=== PATIENT | female | born 1980 | race Caucasian/White ===

== ENCOUNTER 2017-01-02 18:23 | Emergency (ER) | payer OTHER ==
[~2017-01-02] VITALS: Ht 175.3 cm; Wt 64.5 kg
[2017-01-02 18:28] VITALS: BP 123/67; PULSE 80; RESP 16; TEMP 98.9; O2SAT 98
[2017-01-02] MEDS ORDERED: BUPR75TA PO (19:43)
[2017-01-02] MEDS ORDERED: SPRI28TA PO (19:44)
[2017-01-02] MEDS ORDERED: CLAR10CA3 PO (19:44)
--- NOTE | 2017-01-02 19:58 | PD ---
HPI Chief Complaint: headache Time Seen by Provider: 19:34 Travel History International Travel<30 days: No Contact w/Intl Traveler<30days: No Traveled to known affect area: No History of Present Illness HPI This 36-year-old female says she been having a headache for 7 days. She has a history of migraine headaches but her headache she is only lasts a few days. This one has been much more persistent and more severe. She's been taking some ibuprofen without much relief. She was diagnosed with a urine infection not too long ago. She has had some abdominal cramping and occasional nausea. The headache she has is located in the right occipital area. It is aggravated by bending over. At times she feels like she is hot. She says her urine appeared orange the other day. She was on preventative medicine for migraines in the past but says that she did not tolerate the medication well. She has never had a CAT scan or any imaging of her head. The headache started about 2 years ago PFSH Past Medical History Cardiovascular Problems: Yes (Mitral Valve Prolapse) Tetanus Vaccination: < 5 Years Influenza Vaccination: No ?: Unknown LMP: Week and half ago Past Surgical History Surgical History: No Previous Surgery Social History Alcohol Use: No Tobacco Use: No Substance Use: No Allergies-Medications (Allergen,Severity, Reaction): Coded Allergies: Erythromycin (Verified Allergy, Severe, Rash, 01/02/17) Penicillin (Verified Allergy, Severe, Rash, 01/02/17) Reported Meds & Prescriptions Reported Meds & Active Scripts Active Reported Sprintec 28 (Norgestimate-Ethinyl Estradiol) 0.25-35 mg-Mcg Tab 1 Tab PO DAILY Claritin (Loratadine) 10 Mg Cap 10 Mg PO DAILY Bupropion HCl 75 Mg Tab 150 Mg PO BID Review of Systems General / Constitutional: Positive: Chills, No: Fever Eyes: No: Diploplia HENT: Positive: Headaches Cardiovascular: No: Chest Pain or Discomfort, Palpitations Respiratory: No: Cough Gastrointestinal: Positive: Nausea Genitourinary: No: Urgency, Frequency Neurologic: Positive: Weakness Psychiatric: No: Anxiety Endocrine: No: Heat Intolerance, Cold Intolerance Hematologic/Lymphatic: No: Easy Bruising Physical Exam Narrative GENERAL: Well-developed female SKIN: Focused skin assessment warm/dry. HEAD: Atraumatic. Normocephalic. EYES: Pupils equal and round. No scleral icterus. No injection or drainage. ENT: No nasal bleeding or discharge. Mucous membranes pink and moist. NECK: Trachea midline. No JVD. CARDIOVASCULAR: Regular rate and rhythm. No murmur appreciated. RESPIRATORY: No accessory muscle use. Clear to auscultation. Breath sounds equal bilaterally. GASTROINTESTINAL: Abdomen soft, non-tender, nondistended. Hepatic and splenic margins not palpable. MUSCULOSKELETAL: No obvious deformities. No clubbing. No cyanosis. No edema. NEUROLOGICAL: Awake and alert. No obvious cranial nerve deficits. Motor grossly within normal limits. Normal speech. PSYCHIATRIC: Appropriate mood and affect; insight and judgment normal. Data Data Last Documented VS Vital Signs Date Time Temp Pulse Resp B/P Pulse Ox O2 Delivery O2 Flow Rate FiO2 01/02/17 20:56 98.1 83 18 113/61 97 Room Air Orders Complete Blood Count With Diff (01/02/17 19:53) Basic Metabolic Panel (Bmp) (01/02/17 19:53) Urinalysis - C+S If Indicated (01/02/17 19:53) Sodium Chlor 0.9% 1000 Ml Inj (Ns 1000 M (01/02/17 20:00) Prochlorperazine Inj (Compazine Inj) (01/02/17 20:00) Ketorolac Inj (Toradol Inj) (01/02/17 20:00) Ct Brain W/O Iv Contrast(Rout) (01/02/17 19:53) Influenzae A/B Antigen (01/02/17 19:58) Urine Culture (01/02/17 20:15) Labs Laboratory Tests Test 01/02/17 01/02/17 20:15 20:24 Urine Collection Type VOIDED Urine Color YELLOW Urine Turbidity HAZY Urine pH 6.0 Urine Specific [place] 1.004 Urine Protein NEG mg/dL Urine Glucose (UA) NEG mg/dL Urine Ketones TRACE mg/dL Urine Occult Blood NEG Urine Nitrite NEG Urine Bilirubin NEG Urine Leukocyte Esterase NEG Urine RBC 0-3 /hpf Urine WBC 3-5 /hpf Urine WBC Clumps RARE Urine Squamous Epithelial 0-5 /hpf Cells Urine Bacteria FEW /hpf Microscopic Urinalysis Comment CULTURE INDICATED Urine Collection Time 2014 White Blood Count 10.1 TH/MM3 Red Blood Count 4.47 MIL/MM3 Hemoglobin 13.2 GM/DL Hematocrit 38.1 % Mean Corpuscular Volume 85.3 FL Mean Corpuscular Hemoglobin 29.6 PG Mean Corpuscular Hemoglobin 34.7 % Concent Red Cell Distribution Width 10.9 % Platelet Count 353 TH/MM3 Mean Platelet Volume 6.8 FL Neutrophils (%) (Auto) 70.3 % Lymphocytes (%) (Auto) 24.7 % Monocytes (%) (Auto) 4.0 % Eosinophils (%) (Auto) 0.6 % Basophils (%) (Auto) 0.4 % Neutrophils # (Auto) 7.1 TH/MM3 Lymphocytes # (Auto) 2.5 TH/MM3 Monocytes # (Auto) 0.4 TH/MM3 Eosinophils # (Auto) 0.1 TH/MM3 Basophils # (Auto) 0.0 TH/MM3 CBC Comment DIFF FINAL Differential Comment Sodium Level 137 MEQ/L Potassium Level 3.5 MEQ/L Chloride Level 104 MEQ/L Carbon Dioxide Level 23.6 MEQ/L Anion Gap 9 MEQ/L Blood Urea Nitrogen 9 MG/DL Creatinine 0.85 MG/DL Estimat Glomerular Filtration 75 ML/MIN Rate Random Glucose 89 MG/DL Calcium Level 8.9 MG/DL [facility] Medical Decision Making Medical Screen Exam Complete: Yes Emergency Medical Condition: Yes Medical Record Reviewed: Yes Differential Diagnosis Differential includes tension headache, migraine headache, intracerebral tumor Narrative Course CT is negative. Patient given IV fluids and reports feeling better after Compazine and Toradol. She'll be released with prescription for Maxalt and Zofran Diagnosis Primary Impression: Migraine headache Qualified Code: G43.009 - Migraine without aura and without status migrainosus , not intractable Scripts Ondansetron Odt (Zofran Odt)4 Mg Tab4 Mg SL Q6HR PRN (Nausea/Vomiting) #10 TAB Ref 0 Prov:Bernden Zhou MD 01/02/17 Rizatriptan (Maxalt)10 Mg Tab1 Tab PO ONCE #6 Prov:Brenden Zhou MD 01/02/17 Disposition: 01 DISCHARGE HOME Condition: Stable Brenden Zhou MD Jan 02, 2017 19:58
[2017-01-02] MEDS ORDERED: PROCHLORPERAZINE INJ 10 MG/2 ML VIAL IV PUSH ONE (20:00)
[2017-01-02] MEDS ORDERED: SODIUM CHLOR 0.9% 1000 ML INJ 1,000 ML IV ONE (20:00)
[2017-01-02] MEDS ORDERED: KETOROLAC TROMETHAMINE 30 MG/ML (IVP) VIAL IV PUSH ONE (20:00)
[2017-01-02 20:28] LABS: AUTOMATED NEUTROPHIL # 7.1 TH/MM3 (1.8-7.7); BASOPHIL % 0.4 % (0.0-2.0); EOSINOPHIL # 0.1 TH/MM3 (0-0.4); EOSINOPHIL % 0.6 % (0.0-4.0); HEMATOCRIT 38.1 % (35.0-46.0); HEMO FLAGS DIFF FINAL; LYMPH % 24.7 % (9.0-44.0); LYMPHOCYTE # 2.5 TH/MM3 (1.0-4.8); MEAN CELL VOLUME 85.3 FL (80.0-100.0); MEAN CORPUSCULAR HEMOGLOBIN 29.6 PG (27.0-34.0); MEAN CORPUSCULAR HGB CONC 34.7 % (32.0-36.0); NEUT % 70.3 % (16.0-70.0); PLATELET COUNT 353 TH/MM3 (150-450); RED BLOOD COUNT 4.47 MIL/MM3 (4.00-5.30); RED CELL DISTRIBUTION WIDTH 10.9 % (11.6-17.2); WHITE BLOOD COUNT 10.1 TH/MM3 (4.0-11.0)
[2017-01-02 20:39] LABS: POTASSIUM 3.5 MEQ/L (3.5-5.1)
[2017-01-02 20:40] LABS: BLOOD, URINE NEG (NEG); GLUCOSE,URINE NEG (NEG); KETONE, URINE TRACE mg/dL (NEG); NITRITE,URINE NEG (NEG)
[2017-01-02 20:42] LABS: BICARBONATE 23.6 MEQ/L (21.0-32.0)
--- NOTE | 2017-01-02 20:51 | RADRPT ---
EXAM DATE/TIME: 01/02/2017 20:33 [facility] COMPARISON: No previous studies available for comparison. INDICATIONS : Cephalgia. Pain radiating from right occipital to right frontal. RADIATION DOSE: 57.66 CTDIvol (mGy) MEDICAL HISTORY : None SURGICAL HISTORY : None. ENCOUNTER: Initial ACUITY: 1 day PAIN SCALE: 7/10 LOCATION: Right occipital Frontal TECHNIQUE: Multiple contiguous axial images were obtained of the head. Using automated exposure control and adj ustment of the mA and/or kV according to patient size, radiation dose was kept as low as reasonably a chievable to obtain optimal diagnostic quality images. DICOM format image data is available electro nically for review and comparison. FINDINGS: CEREBRUM: The ventricles are normal for age. No evidence of midline shift, mass lesion, hemorrhage or acute in farction. No extra-axial fluid collections are seen. POSTERIOR FOSSA: The cerebellum and brainstem are intact. The 4th ventricle is midline. The cerebellopontine angle i s unremarkable. EXTRACRANIAL: The visualized portion of the orbits is intact. SKULL: The calvaria is intact. No evidence of skull fracture. CONCLUSION: Negative noncontrast head CT. Conrad Niño MD on January 02, 2017 at 20:49 Board Certified Radiologist. This report was verified electronically.
[2017-01-02 20:56] VITALS: BP 113/61; PULSE 83; RESP 18; TEMP 98.1; O2SAT 97
[2017-01-02 21:00] LABS: METHOD OF COLLECTION VOIDED; URINE COLOR YELLOW (YELLW/STRAW)
[2017-01-02 21:02] LABS: BACTERIA, URINE FEW /hpf; COMMENT (UR) CULTURE INDICATED; CULTURE IF INDICATED CULTURE INDICATED; RBC, URINE 0-3 /hpf (0-3); SQUAMOUS EPITHELIAL CELL URINE 0-5 /hpf (0-5)
[2017-01-02] MEDS ORDERED: MAXA10TA2 PO (21:09)
[2017-01-02] MEDS ORDERED: ZOFR4TAB3 SL (21:09)
== END 2017-01-02 21:27 | disposition home or self-care (01) ==
LOC: PHED 18:23
DX: G43.009 Migraine without aura, not intractable, without status migrainosus (principal); R10.9 Unspecified abdominal pain
CPT/HCPCS: 70450; 80048; 81001; 85025; 87086; 87804; 96374; 96375; 99285; J0780; J1885; J7030